=== PATIENT | male | born 1980 | race Caucasian/White ===

== ENCOUNTER 2016-08-24 22:37 | Emergency (ER) | payer OTHER ==
[~2016-08-24] VITALS: Ht 180.3 cm; Wt 75.1 kg
[~2016-08-24 22:37] MED LIST: LEVO125T72 PO; PRLSR20 PO
[2016-08-24 22:45] VITALS: Ht 180.3 cm; Wt 75.1 kg
[2016-08-24] MEDS ORDERED: DEXT10CA PO (23:39)
[2016-08-24] MEDS ORDERED: LEVO150T9 PO (23:39)
[2016-08-24] MEDS ORDERED: MAGIC SWIZZLE PO STA (23:47)
[2016-08-24] MEDS ORDERED: MAGIC1 PO (23:49)
--- NOTE | 2016-08-24 23:50 | EMERGENCY ROOM VISIT NOTE ---
History First contact with patient: 23:26 Chief Complaint: FOOD BOLUS Stated Complaint: SOMETHING STUCK IN THROAT Nursing Triage Summary: Pt was laying down approximately two hours ago and felt as though he had something stuck on left side of throat. Pt states it hurts now when he swallows. History of Present Illness The patient is a 36 year old male who presents to the Emergency Room with complaints of a sensation that something is stuck in his throat. The patient reports that he was lying in bed with his son when he had a sudden onset of pain and the feeling that something was stuck in the left side of his throat. He states this occurred several hours after he had already eaten dinner. He states he has increased pain with swallowing. He denies any difficulty breathing. He rates his discomfort a 6/10. He denies any other symptoms. Review of Systems A complete 10-point Review of Systems was discussed with the patient, with pertinent positives and negatives listed in the History of Present Illness. All remaining Review of Systems questions can be considered negative unless otherwise specified. Past Medical/Surgical History Medical Problems: (1) No significant past medical history Surgical Problems: (1) No history of previous surgery Social History Smoking Status: Never Smoker Alcohol Use: occasionally Marital Status: Housing Status: lives with family Occupation Status: employed Current/Historical Medications Scheduled Dextroamphetamine Sulfate (Dexedrine), 10 MG PO DAILY Levothyroxine Sodium (Levothyroxine Sodium), 150 MCG PO DAILY Omeprazole (Prilosec), 20 MG PO DAILY Scheduled PRN Diphenhy/Alum/Mag/Sucralfa (Magic Swizzle - Diphenhy/Alum/Mag/Sucralfa), 1 TSP PO Q4H PRN for Pain Allergies Coded Allergies: No Known Allergies (Unverified , 08/24/16) Physical Exam Vital Signs Date Time Temp Pulse Resp B/P Pulse Ox O2 Delivery O2 Flow Rate FiO2 08/25/16 00:47 36.6 77 18 126/89 99 08/25/16 00:45 77 18 126/89 99 Room Air 08/24/16 23:02 Room Air 08/24/16 22:45 36.6 89 18 146/99 99 Room Air Physical Exam VITALS: Vitals are noted on the nurse's note and reviewed by myself. Vital signs stable. GENERAL: This is a 36-year-old male, in no acute distress, nondiaphoretic, well- developed well-nourished. SKIN: The skin was without rashes. EARS: External auditory canals clear, tympanic membranes pearly lennon without erythema or effusion bilaterally. EYES: Pupils equal round and reactive to light and accommodation. Conjunctivae without injection, sclerae without icterus. NOSE: Patent, turbinates without inflammation or discharge. No sinus tenderness. MOUTH: Mucous membranes moist. There are several erythematous vesicular lesions in the left posterior oropharynx. Tonsils are not enlarged. The uvula is midline. Airway is patent. NECK: Supple without nuchal rigidity. No lymphadenopathy. HEART: Regular rate and rhythm without murmurs gallops or rubs. LUNGS: Clear to auscultation bilaterally without wheezes, rales or rhonchi. NEURO: Patient was alert and oriented to person place and time. Medical Decision & Procedures Medical Decision Differential diagnosis includes food bolus, strep pharyngitis, herpes simplex virus, coxsackievirus, among others. The patient was evaluated as above. There are several vesicular-appearing lesions in the posterior oropharynx. I feel these are likely the cause of the patient's pain as well as the sensation of something stuck in his throat. The patient did request imaging to ensure that there was nothing stuck in his throat. An x-ray of the soft tissues of the neck was performed and read by myself and radiology with no acute findings. Conservative measures were discussed with the patient. He will follow-up with his primary care provider as needed. He was given a home pack and prescription for Magic swizzle. He verbalized understanding of my assessment and treatment plan and was discharged home in good condition. Impression Primary Impression: Sore throat Departure Information Dispostion Home / Self-Care Condition GOOD Prescriptions Diphenhy/Alum/Mag/Sucralfa (Magic Swizzle - Diphenhy/Alum/Mag/Sucralfa) Susp 1 TSP PO Q4H Y for Pain, #200 ML 1 Refill 30ML DIPHENHYDRAMINE SLN 12.5/5ML 60ML MAALOX 4GM CARAFATE SWISH AND SPIT Prov: Lakia Knox .WILLIAM 08/24/16 Referrals Alia Rausch D.O. (PCP) Patient Instructions My [facility] Additional Instructions Swish and spit the Magic swizzle as needed for throat pain. For pain control, you can use the following [id number] medicines (if >12 yo): - Regular strength (325mg/tab) Tylenol (acetaminophen) 2 tabs every 4-6 hours as needed. Do not exceed 12 tablets in a 24 hour period. Avoid taking more than 4 grams (4000 mg) of Tylenol per day. This includes any other sources of acetaminophen you may take on a regular basis. - Regular strength (200 mg/tab) Advil (ibuprofen) 1-2 tabs every 4-6 hours as needed. Do not exceed a dose of 3200 mg per day. Follow-up with your primary care provider if symptoms do not relieve in 2-3 days. Return to the emergency department with worsening pain, difficulty swallowing, difficult to breathing or any other new/concerning symptoms.
[2016-08-25] MEDS ORDERED: LIDOCAINE HCL 2% VISCOUS SOLN 60 ML, DiphenhydrAMINE HCL SYRUP 150 MG, ALUMINUM/MAGNESI... MT PRN ×4 (00:15)
[2016-08-25] MEDS ORDERED: LIDOCAINE HCL 2% VISCOUS SOLN 1.25 ML, DiphenhydrAMINE HCL SYRUP 3.125 MG, ALUMINUM/MAG... MT ONE ×4 (00:15)
[2016-08-25 00:47] VITALS: BP 126/89; PULSE 77; TEMP 36.6; O2SAT 99
--- NOTE | 2016-08-25 07:46 | DIAGNOSTIC IMAGING REPORT ---
SOFT TISSUE NECK TECHNIQUE: AP and lateral soft tissue neck FINDINGS: Normal prevertebral soft tissues. No distention of the hypopharynx. The epiglottis is normal. Mild submandibular soft tissue fullness IMPRESSION: Mild submandibular soft tissue fullness. Otherwise negative study. No evidence for airway compromise. Electronically signed by: Leighton Farrell M.D. 08/25/2016 7:45 AM Dictated Date/Time: 08/25/2016 7:44 AM
== END 2016-08-25 00:48 | disposition home or self-care (01) ==
LOC: C.EDB 22:38
DX: J02.9 Acute pharyngitis, unspecified (principal)